=== PATIENT | female | born 1980 | race Caucasian/White ===

== ENCOUNTER 2020-06-25 10:09 | Emergency (ER) | payer OTHER ==
[~2020-06-25] VITALS: Ht 149.9 cm; Wt 100.0 kg
[2020-06-25 10:11] VITALS: BP 163/102
== END 2020-06-25 10:41 | disposition home or self-care (01) ==
LOC: ER 10:21
DX: H60.91 Unspecified otitis externa, right ear (principal)
CPT/HCPCS: 99283